=== PATIENT | female | born 1990 | race African-American/Black ===

== ENCOUNTER 2023-12-23 03:53 | Emergency (ER) | payer MEDICAID, OTHER ==
[~2023-12-23] VITALS: Ht 180.3 cm; Wt 105.0 kg
[2023-12-23 05:37] LABS: HCG SCREEN NEGATIVE
[2023-12-23] MEDS: IBUPROFEN 400MG TABLET PO ONE (06:05)
[2023-12-23] MEDS ORDERED: IBUP-2028 PO (07:26)
[2023-12-23] MEDS ORDERED: OXYC-100 PO (07:26)
[2023-12-23] MEDS: ACETAMINOPHEN WITH CODEINE 300/30MG TABLET PO ONE (07:30)
[2023-12-23 07:34] VITALS: BP 132/82; PULSE 88; RESP 16; TEMP 36.78072; O2SAT 98
== END 2023-12-23 07:49 | disposition home or self-care (01) ==
LOC: ER 04:29
DX: S60.221A Contusion of right hand, initial encounter (principal); W10.9XXA Fall (on) (from) unspecified stairs and steps, initial encounter; Y93.89 Activity, other specified; Y92.89 Other specified places as the place of occurrence of the external cause; Y99.8 Other external cause status
CPT/HCPCS: 73030; 73090; 73120; 73590; 81025; 84703; 99284